=== PATIENT | male | born 2000 | race Caucasian/White ===

== ENCOUNTER 2019-04-10 02:31 | Emergency (ER) | payer BC ==
[~2019-04-10] VITALS: Ht 175.3 cm; Wt 64.5 kg
--- NOTE | 2019-04-10 03:03 | NUR ---
Pt came in with laceration on forehead after falling at home, pt is drunk.
[2019-04-10] MEDS ORDERED: LIDOCAINE 1%-EPI 1:100K, 20ML SQ ONE (04:00)
[2019-04-10 04:53] VITALS: BP 118/56
[2019-04-10] MEDS ORDERED: NEOSPORIN OINT. PKT 1 PACKET ONE (05:23)
== END 2019-04-10 05:44 | disposition home or self-care (01) ==
LOC: ED 03:46
DX: S01.81XA Laceration without foreign body of other part of head, initial encounter (principal); W06.XXXA Fall from bed, initial encounter; Y93.89 Activity, other specified; Y92.009 Unspecified place in unspecified non-institutional (private) residence as the place of occurrence of the external cause; Y99.8 Other external cause status
CPT/HCPCS: 12013; 36415; 70450; 80307; 99284